=== PATIENT | female | born 1990 | race African-American/Black ===

== ENCOUNTER 2019-08-07 18:00 | Observation (INO) | payer BC ==
[2019-08-07] MEDS ORDERED: Lidocaine 2% 100 MG/5 ML Syringe IVPUSH PRN (18:14)
[2019-08-07] MEDS ORDERED: Atropine 0.1 MG/ML 10 ML Syringe IVPUSH PRN (18:14)
[2019-08-07] MEDS ORDERED: Nitroglycerin 0.4 MG Tab.SL SL PRN (18:14)
[2019-08-07] MEDS ORDERED: EPINEPHrine 1:10,000 1 MG/10 ML Syringe IVPUSH PRN (18:14)
[2019-08-07] MEDS ORDERED: Sodium Chloride 0.9% 10 ML Syringe FLUSH PRN (18:14)
[2019-08-07 18:59] LABS: ANION GAP 13.1 mmol/L (5-15); CHLORIDE,CL 105 mmol/L (98-115); SODIUM,NA 143 mmol/L (136-145)
[2019-08-07] MEDS ORDERED: Labetalol 100 MG/20 ML MDV IVPUSH ONE ×2 (19:08→21:34)
--- NOTE | 2019-08-07 19:47 | CR ---
[id number] RAD/RAD Chest PA And Lateral EXAM: RAD Chest PA And Lateral CLINICAL DATA: HYPERTENSION COMPARISON: NO PREVIOUS SIMILAR EXAM IS AVAILABLE. FINDINGS: The lungs are clear. The cardiomediastinal contour is normal. The regional bones and soft tissues are unremarkable. IMPRESSION: NO ACUTE PROCESS. Hugo Lo MD 08/07/19 1946 Thank you for allowing us to participate in the care of your patient.
[2019-08-07] MEDS ORDERED: Acetaminophen 325 MG Tab PO PRN (20:41)
[2019-08-07] MEDS ORDERED: Diltiazem IR 30 MG Tab PO ONE (23:27)
[2019-08-08] MEDS ORDERED: Acetaminophen/HYDROcodone 325-5 MG Tab ONE (04:07)
[2019-08-08] MEDS ORDERED: hydrALAZINE 20 MG/ML SDV ONE (04:07)
[2019-08-08] MEDS ORDERED: Acetaminophen/HYDROcodone 325-5 MG Tab PO ONE (04:13)
[2019-08-08] MEDS ORDERED: hydrALAZINE 20 MG/ML SDV IVPUSH ONE (04:14)
[2019-08-08 07:45] LABS: ANION GAP 13.6 mmol/L (5-15); CHLORIDE,CL 105 mmol/L (98-115); SODIUM,NA 145 mmol/L (136-145)
[2019-08-08] MEDS ORDERED: Diltiazem 120 MG Cap.CD PO SCH (11:15)
--- NOTE | 2019-08-08 18:06 | PCM.DCSUM1 ---
Discharge Summary - Hospital Course Diagnosis: Stroke: No - Discharge Data Discharge Date: 08/08/19 Discharge Disposition: Home, Self-Care 01 Condition: Good - Referral to Home Health Primary Care Physician: Patsy Sims PA-C - Patient Instructions Diet: Heart Healthy Diet Diet, Other: LOW SALT diet. DASH DIET handout. Activity: No Lifting Over 20 Pounds, No Strenuous Activities Driving: May Drive Today Showering/Bathing: May Shower Other/Special Instructions: Eat low salt foods, avoid adding salt. Call [facility] for appointment. Your NEW medication: Cardizem CD 120mg. take every day. Report any dizziness, chest pain, visual problems shortness of breath or any concerns. I have placed an nephrology consult in for you to see a kidney doctor. You will also get an ultrasound of your kidneys and your heart - Discharge Plan *PRESCRIPTION DRUG MONITORING PROGRAM REVIEWED*: Not Applicable *COPY OF PRESCRIPTION DRUG MONITORING REPORT IN PATIENT MERLENE: Not Applicable Prescriptions/Med Rec: Diltiazem [Cardizem CD] 120 mg PO DAILY #30 cap.cd Home Medications: Home Meds Albuterol [Proventil HFA] 1 puff INH QID PRN 08/07/19 [History] Fluticasone Propion/Salmeterol [Fluticasone-Salmeterol 500-50] 1 puff IH BID 08/07/19 [History] Diltiazem [Cardizem CD] 120 mg PO DAILY #30 cap.cd 08/08/19 [Rx] Referrals: Patsy Sims PA-C [Primary Care Provider] - (Patient to call [facility] for follow-up this week) - Discharge Summary/Plan Comment DC Time >30 min.: No Discharge Summary/Plan Comment: History summary 29-year-old obese black female was admitted by [facility] due to elevated blood pressure. Patient was seen outpatient clinic by Kassy as she was having more nighttime awakenings due to asthma exacerbation. It was noted for her to have elevated blood pressure in the clinic however asymptomatic. She had no dizziness visual changes or chest pain however she was admitted as her creatinine was not ideal. No history of lipid screening in the past, no prior history of DM, BMI 38.19. Patient describes an overall poor diet with added sodium intake. No regular physical activity. Does lift weights at times. Is adopted so no pertinent family medical history available. She was admitted and given IV labetalol placed and observation on telemetry for further management and workup. Hospital course, patient was given IV labetalol while in the hospital with improved symptoms. She did have headache however no CV instability other than high blood pressure. She was given calcium channel rory diltiazem which improved. I placed her on oral Cardizem upon discharge. He had uneventful overnight observation status. Her creatinine did improve. Medication changes/adjustments upon discharge Cardizem CD 120 mg p.o. daily. (Newly added) Disposition discharge instructions --Sodium diet avoid adding salt --Call [facility] for follow-up appointment --Your NEW medication: Cardizem CD 120mg. take every day Consultations Cardiogram, ordered Nephrology, placed Renal US, [facility], August 08 Follow-up provider Review CMV, HIV and hepatitis results upon follow-up. - General Info Functional Status: Reports: Pain Controlled - Review of Systems General: Reports: No Symptoms HEENT: Reports: No Symptoms Pulmonary: Reports: No Symptoms Cardiovascular: Reports: No Symptoms Gastrointestinal: Reports: No Symptoms Genitourinary: Reports: No Symptoms Musculoskeletal: Reports: No Symptoms Neurological: Reports: No Symptoms - Patient Data Vitals - Most Recent: Last Vital Signs Temp 97.6 F 08/08/19 15:00 Pulse 64 08/08/19 15:00 Resp 18 08/08/19 15:00 BP 147/79 H 08/08/19 15:00 Pulse Ox 99 08/08/19 15:00 Weight - Most Recent: 255 lb 14.4 oz I&O - Last 24 hours: Intake & Output 08/08/19 08/08/19 08/08/19 06:59 14:59 22:59 Intake Total 0 600 Output Total 0 Balance 0 600 Lab Results - Last 24 hrs: Laboratory Results - last 24 hr 08/07/19 08/07/19 08/07/19 Range/Units 18:25 18:25 21:58 WBC 6.03 (5.00-10.00) 10^3/uL RBC 4.26 (3.80-5.50) 10^6/uL Hgb 13.2 (12.0-16.0) g/dL Hct 41.4 (37.0-47.0) % MCV 97.2 H (82.0-92.0) fL MCH 31.0 (27.0-31.0) pg MCHC 31.9 L (32.0-36.0) g/dL RDW 12.4 (11.5-14.5) % Plt Count 73 L (150-400) 10^3/uL MPV Immature Gran % (Auto) 0.0 (0.0-5.0) % Neut % (Auto) 54.3 (50.0-70.0) % Lymph % (Auto) 35.0 (20.0-40.0) % [place] % (Auto) 8.0 (2.0-8.0) % Eos % (Auto) 1.5 (1.0-3.0) % Baso % (Auto) 1.2 H (0.0-1.0) % Neut # (Auto) 3.28 (2.50-7.00) 10^3/uL Lymph # (Auto) 2.11 (1.00-4.00) 10^3/uL [place] # (Auto) 0.48 (0.10-0.80) 10^3/uL Eos # (Auto) 0.09 L (0.10-0.30) 10^3/uL Baso # (Auto) 0.07 (0.00-0.10) 10^3/uL Immature Gran # (Auto) 0.00 (0.00-0.50) 10^3/uL Platelet Estimate Decreased Giant Platelets Few Sodium 143 (136-145) mmol/L Potassium 3.4 (3.3-5.3) mmol/L Chloride 105 (98-115) mmol/L Carbon Dioxide 28.3 (21.0-32.0) mmol/L Anion Gap 13.1 (5-15) mmol/L BUN 14 (6-25) mg/dL Creatinine 1.35 H (0.51-1.17) mg/dL Est Cr Clr Drug Dosing 63.68 mL/min Estimated GFR (MDRD) 56 mL/min Glucose 92 (75 - 99) mg/dL Hemoglobin A1c (4.3-5.7) % Calcium 9.0 (8.7-10.3) mg/dL Total Bilirubin (0.2-1.0) mg/dL AST (15-37) U/L ALT (12-78) U/L Alkaline Phosphatase (46-116) IU/L Troponin I < 0.04 (0.00-0.070) ng/mL B-Natriuretic Peptide 8 (0-100) pg/mL Total Protein (6.4-8.2) g/dL Albumin (3.00-4.80) g/dL Urine HCG, Qual Negative (NEGATIVE) 08/08/19 08/08/19 08/08/19 Range/Units 07:06 07:06 07:06 WBC 6.81 (5.00-10.00) 10^3/uL RBC 4.07 (3.80-5.50) 10^6/uL Hgb 12.6 (12.0-16.0) g/dL Hct 39.8 (37.0-47.0) % MCV 97.8 H (82.0-92.0) fL MCH 31.0 (27.0-31.0) pg MCHC 31.7 L (32.0-36.0) g/dL RDW 12.3 (11.5-14.5) % Plt Count 76 L (150-400) 10^3/uL MPV [employer] Professional Immature Gran % (Auto) 0.1 (0.0-5.0) % Neut % (Auto) 71.3 H (50.0-70.0) % Lymph % (Auto) 19.1 L (20.0-40.0) % [place] % (Auto) 7.2 (2.0-8.0) % Eos % (Auto) 1.6 (1.0-3.0) % Baso % (Auto) 0.7 (0.0-1.0) % Neut # (Auto) 4.85 (2.50-7.00) 10^3/uL Lymph # (Auto) 1.30 (1.00-4.00) 10^3/uL [place] # (Auto) 0.49 (0.10-0.80) 10^3/uL Eos # (Auto) 0.11 (0.10-0.30) 10^3/uL Baso # (Auto) 0.05 (0.00-0.10) 10^3/uL Immature Gran # (Auto) 0.01 (0.00-0.50) 10^3/uL Platelet Estimate Giant Platelets Sodium 145 (136-145) mmol/L Potassium 3.7 (3.3-5.3) mmol/L Chloride 105 (98-115) mmol/L Carbon Dioxide 30.1 (21.0-32.0) mmol/L Anion Gap 13.6 (5-15) mmol/L BUN 12 (6-25) mg/dL Creatinine 1.22 H (0.51-1.17) mg/dL Est Cr Clr Drug Dosing 70.47 mL/min Estimated GFR (MDRD) > 60 mL/min Glucose 125 H (75 - 99) mg/dL Hemoglobin A1c 5.0 (4.3-5.7) % Calcium 8.8 (8.7-10.3) mg/dL Total Bilirubin 0.7 (0.2-1.0) mg/dL AST 24 (15-37) U/L ALT 31 (12-78) U/L Alkaline Phosphatase 66 (46-116) IU/L Troponin I (0.00-0.070) ng/mL B-Natriuretic Peptide (0-100) pg/mL Total Protein 7.8 (6.4-8.2) g/dL Albumin 3.49 (3.00-4.80) g/dL Urine HCG, Qual (NEGATIVE) Med Orders - Current: Current Medications Acetaminophen (Tylenol) 650 mg PO Q4H PRN PRN Reason: Pain Last Admin: 08/07/19 21:00 Dose: 650 mg Atropine Sulfate (Atropine 0.1 Mg/Ml) 0 mg IVPUSH ASDIRECTED PRN PRN Reason: Heart. Diltiazem HCl (Cardizem Cd) 120 mg PO DAILY ERLINDA Last Admin: 08/08/19 12:08 Dose: 120 mg Epinephrine HCl (Epinephrine 1:10,000) 1 mg IVPUSH ASDIRECTED PRN PRN Reason: Heart. Lidocaine HCl (Xylocaine 2%) 0 mg IVPUSH ASDIRECTED PRN PRN Reason: Heart. Nitroglycerin (Nitrostat) 0.4 mg SL ASDIRECTED PRN PRN Reason: Heart. Sodium Chloride (Saline Flush) 10 ml FLUSH Q8HR PRN PRN Reason: keep vein open Discontinued Medications Hydrocodone Bitart/Acetaminophen (Estill 325-5 Mg) Confirm Administered Dose 2 tab .ROUTE .STK-MED ONE Stop: 08/08/19 04:08 Last Admin: 08/08/19 04:16 Dose: Not Given Hydrocodone Bitart/Acetaminophen (Estill 325-5 Mg) 1 - 2 tab PO ONETIME ONE Stop: 08/08/19 04:14 Last Admin: 08/08/19 04:15 Dose: 2 tab Diltiazem HCl (Cardizem) 30 mg PO ONETIME ONE Stop: 08/07/19 23:28 Last Admin: 08/08/19 00:21 Dose: 30 mg Hydralazine HCl (Apresoline) Confirm Administered Dose 20 mg .ROUTE .STK-MED ONE Stop: 08/08/19 04:08 Last Admin: 08/08/19 04:16 Dose: Not Given Hydralazine HCl (Apresoline) 10 mg IVPUSH ONETIME ONE Stop: 08/08/19 04:15 Last Admin: 08/08/19 04:25 Dose: 10 mg Labetalol HCl (Normodyne) 20 mg IVPUSH ONETIME ONE; Protocol Stop: 08/07/19 19:09 Last Admin: 08/07/19 20:01 Dose: 20 mg Labetalol HCl (Normodyne) 20 mg IVPUSH ONETIME ONE; Protocol Stop: 08/07/19 21:35 Last Admin: 08/07/19 21:55 Dose: 20 mg - Exam Quality Assessment: Denies: Supplemental Oxygen General: Reports: Alert, Oriented Neck: Reports: Supple Lungs: Reports: Clear to Auscultation, Normal Respiratory Effort Cardiovascular: Reports: Regular Rate, Regular Rhythm GI/Abdominal Exam: Normal Bowel Sounds, Soft (Female) Exam: Deferred Rectal (Female) Exam: Deferred Extremities: No Pedal Edema Skin: Reports: Warm, Dry, Intact Psy/Mental Status: Reports: Alert, Normal Affect, Normal Mood
== END 2019-08-08 18:10 | disposition home or self-care (01) ==
LOC: KA.MS 18:00
PROVIDERS: ADMIT Nurse Practitioner Family; ATTEND Nurse Practitioner Family
DX: I10 Essential (primary) hypertension (principal); J45.40 Moderate persistent asthma, uncomplicated; R79.89 Other specified abnormal findings of blood chemistry; D69.6 Thrombocytopenia, unspecified; N28.9 Disorder of kidney and ureter, unspecified; Z88.8 Allergy status to other drugs, medicaments and biological substances; Z79.899 Other long term (current) drug therapy
CPT/HCPCS: 36415; 71046; 80048; 80053; 81025; 83036; 83880; 84484; 85008; 85025; 86645; 86803; 87389; 96374; 96375; 96376; A9270-GY; G0378; J0360; J3490